=== PATIENT | female | born 1945 | race Caucasian/White ===

== ENCOUNTER 2017-02-16 16:24 | Emergency (ER) | payer OTHER ==
[~2017-02-16] VITALS: Ht 147.3 cm; Wt 87.1 kg
[~2017-02-16 16:24] MED LIST: ADVAIR 250-501 EACH INH; ENALAPRIL-HCTZ1 EACH PO; FERROUS SULFAT325 M3 PO; PROAIR HFA8.5 GM INH; PROPAFENONE HC PO; SIMVASTATIN20 M2 PO
--- NOTE | 2017-02-16 16:44 | ED GI/GU/ABDOMINAL COMPLAINT ---
History of Present Illness General Chief Complaint: General Adult Stated Complaint: PT HAS PAIN IN THE RIGTH GROIN AREA Source: patient Exam Limitations: no limitations Vital Signs & Intake/Output Vital Signs & Intake/Output Vital Signs Date Time Temp Pulse Resp B/P B/P Pulse O2 O2 Flow FiO2 Mean Ox Delivery Rate 02/16 1629 98.8 81 18 130/83 98 Room Air Allergies Coded Allergies: NO KNOWN ALLERGIES (05/11/12) Reconcile Medications Albuterol Sulfate (Proair Hfa) 8.5 GM HFA.AER.AD 2 PUF INH Q4-6 PRN PRN SOB ( Reported) Aspirin (Ecotrin*) 81 MG TABLET.DR 1 TAB PO DAILY HEART/BLOOD (Reported) Calcium (Elemental-Fr Calcarb) (Calcium) (Unknown Strength) TABLET (Unknown Dose) PO DAILY SUPPLEMENT (Reported) Cholecalciferol (Vitamin D3) (Vitamin D3) (Unknown Strength) CAPSULE (Unknown Dose) PO DAILY SUPPLEMENT (Reported) Cyanocobalamin (Vitamin B-12) (Unknown Strength) TABLET (Unknown Dose) PO DAILY SUPPLEMENT (Reported) Cyclobenzaprine HCl 10 MG TABLET 1 TAB PO TID PRN SPASM DO NOT DRIVE WITH THIS MEDICATION Enalapril Maleate 10 MG TABLET 1 TAB PO BID BP (Reported) Ferrous Sulfate 325 MG TABLET 1 TAB PO TID SUPPLEMENT (Reported) Fluticasone/Salmeterol (Advair 250-50 Diskus) 1 EACH BLST.W.DEV 1 PUF INH BID SOB (Reported) Methylprednisolone. (Medrol) 4 MG TAB.DS.PK 1 DP PO AD INFLAMMATION 6 on day 1 then reduce by one tablet daily until gone Omeprazole 20 MG CAPSULE.DR 1 CAP PO DAILY GI (Reported) Propafenone HCl 225 MG TABLET 1 TAB PO BID HEART (Reported) Simvastatin (Simvastatin*) 20 MG TABLET 1 TAB PO QPM CHOL (Reported) Tramadol HCl 50 MG TABLET 1 TAB PO BIDP PRN PAIN Triage Note: 71 YO FEMALE TO TRIAGE C/O R SIDED GROIN PAIN X2 DAYS. STATES PAIN IS GETTING WORSE. HAS BEEN USING ICE WITHOUT RELIEF. DENIES INJURY. Triage Nurses Notes Reviewed? yes ? N Is pt currently ? No Onset: Abrupt Duration: day(s): (3) Timing: multiple episodes today Quality/Severity: moderate, severe Location: right lower quadrant Modifying Factors: Worsens With: movement. HPI: 71 year old female presents to [facility] ER with right groin pain x 3 days. Denies trauma. Pain is sharp, worse with range of motion. Today she could not lift up the leg to get into the car. No fever, chills or sweats. Past History Travel History Traveled to [place] past 21 day No Medical History Any Pertinent Medical History? see below for history Neurological: NONE EENT: NONE Cardiovascular: HTN,CHOL Respiratory: asthma Gastrointestinal: GERD Hepatic: NONE Renal: chronic kidney disease Musculoskeletal: NONE Psychiatric: NONE Endocrine: NONE Blood Disorders: NONE Cancer(s): NONE TRY OUT PERSON/Reproductive: NONE Surgical History Surgical History: b/l knee repair Psychosocial History Who do you live with Patient/Self Services at Home None What is your primary language Moroccan Tobacco Use: Never used ETOH Use: denies use Family History Hx Contributory? No Review of Systems Review of Systems Constitutional: Denies: chills, fever. EENTM: Reports: no symptoms. Respiratory: Denies: cough, short of breath. Cardiovascular: Denies: chest pain. GI: Reports: no symptoms. Genitourinary: Reports: no symptoms. Musculoskeletal: Reports: joint pain. Denies: joint swelling. Skin: Reports: no symptoms. Neurological/Psychological: Reports: no symptoms. Hematologic/Endocrine: Denies: bruising, bleeding, polyuria, polydipsia. Immunologic/Allergic: Denies: splenectomy. All Other Systems: Reviewed and Negative Physical Exam Physical Exam General Appearance: well developed/nourished, alert, awake, anxious Head: atraumatic, normal appearance Eyes: Bilateral: normal appearance, PERRL, EOMI. Ears, Nose, Throat, Mouth: hearing grossly normal, moist mucous membrane Neck: normal inspection, supple, full range of motion Respiratory: normal breath sounds, chest non-tender, no respiratory distress Cardiovascular: regular rate/rhythm Peripheral Pulses: 2+ radial (R), 2+ radial (L) Gastrointestinal: normal bowel sounds, soft, non-tender Extremities: PAIN WITH RANGE OF MOTION RIGHT LEG Neurologic/Psych: no motor/sensory deficits, awake, alert, oriented x 3 Skin: intact, normal color, warm/dry Core Measures ACS in differential dx? No Severe Sepsis Present: No Septic Shock Present: No Progress Differential Diagnosis: hernia, SCATICA, MUSCLE STRAIN, FRACTURE, DISLOCATION Plan of Care: Orders Procedure Date/time Status URINALYSIS 02/16 1658 Complete Current Medications Sig/Carl Start time Last Medication Dose Stop Time Status Admin Prednisone 60 MG ONCE ONE 02/16 1930 AC 02/16 1931 Laboratory Tests 02/16/17 1848: Urine Color YEL, Urine Clarity CLEAR, Urine pH 6.0, Ur Specific [place] 1.025, Urine Protein NEG, Urine Ketones NEG, Urine Nitrite NEG, Urine Bilirubin NEG, Urine Urobilinogen 0.2, Ur Leukocyte Esterase NEG, Ur Microscopic EXAM NOT REQUIRED, Urine Hemoglobin NEG, Urine Glucose NEG Diagnostic Imaging: Viewed by Me: CT Scan. Discussed w/RAD: CT Scan. Initial ED EKG: NSR Comments: PATIENT: TAMIA PHOENIX PRESENT AGE: 71 PATIENT ACCOUNT NO: [id number] : 43 LOCATION: [facility] ORDERING PHYSICIAN: JAZMIN MONTESINOS MD SERVICE DATE: 02/16/17 EXAM TYPE: CAT - CT LUMB SPINE WO IV CONTRAST EXAMINATION: CT LUMBAR SPINE WITHOUT CONTRAST CLINICAL INFORMATION: Severe right groin pain. Recent low back injection. Assess for degenerative joint disease or disc disease. COMPARISON: None. TECHNIQUE: Helical non-contrast CT images were obtained through the lumbar spine and 0.625 and 2.5 mm axial reconstructions were reviewed along with sagittal and coronal MPRs. DLP: 935.67 mGy-cm FINDINGS: There is a 5 mm grade 1 anterolisthesis of L4 on L5, and there is a 2 mm grade 1 anterolisthesis of L5 on S1. There are severe vacuum disc changes at these levels with narrowing of intervertebral disc height. Vertebral body heights are maintained and there are no compression fractures. Overall, bone mineralization appears diffusely decreased. There are atheromatous calcifications of the vascular structures. There are degenerative changes of the sacroiliac joints bilaterally. The pelvic structures are unremarkable. There is mild increased density in the subcutaneous fat in the left lower back which is nonspecific, but may be related to the recent back injection. No focal fluid collections are demonstrated. SPINAL LEVELS: T12-L1: The disc configuration is normal. The central canal and neural foramina are widely patent. The facet joints are normal. L1-L2: The disc configuration is normal. The central canal and neural foramina are widely patent. The facet joints are normal. L2-L3: There is mild bilateral facet arthropathy. Disc contour is normal. There is no central stenosis or foraminal narrowing. L3-L4: There is moderate bilateral facet arthropathy and ligamenta flava hypertrophy. There is a posterior disc protrusion extending into the neural foramina bilaterally without definite nerve root impingement. There is mild central stenosis. L4-L5: There is severe bilateral facet arthropathy. There is unroofing of the disc as a result of the anterolisthesis and there are bilateral foraminal disc protrusions with impingement on the exiting L4 nerve roots bilaterally. There is moderate to severe central stenosis. L5-S1: There is mild to moderate bilateral facet arthropathy. There is unroofing of the disc as a result of the anterolisthesis. There are bilateral foraminal disc protrusions, which appear more prominent on the left with impingement on the exiting left greater than right L5 nerve roots. There is no central stenosis. IMPRESSION: 1. There are no acute fractures. 2. 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 3. There is moderate to severe central stenosis at L4-L5. There is mild central stenosis at L3-L4. DICTATED BY: JUNIOR AYALA MD DATE/TIME DICTATED:02/16/171742 CORPORATE COMPLIANCE OFFICER:FERNANDA DATE/TIME TRANSCRIBED:02/16/171742 CONFIDENTIAL, DO NOT COPY WITHOUT APPROPRIATE AUTHORIZATION. <Electronically signed in Other Vendor System> SIGNED BY: JUNIOR AYALA MD 02/16/17 1802 PATIENT: TAMIA PHOENIX PRESENT AGE: 71 PATIENT ACCOUNT NO: [id number] : 43 LOCATION: [facility] ORDERING PHYSICIAN: JAZMIN MONTESINOS MD SERVICE DATE: 02/16/17 EXAM TYPE: CAT - CT PELVIS WO IV CONTRAST EXAMINATION: CT PELVIS WITHOUT CONTRAST CLINICAL INFORMATION: Severe right groin/pelvic pain. Evaluate for pelvic fracture. COMPARISON: None TECHNIQUE: Helical scanning was performed with submillimeter collimation through the pelvis. Sagittal and coronal multiplanar 2-D reconstructions were obtained. DLP: 893.61 mGy-cm FINDINGS: PELVIS: There is no pelvic mass. There are small fat-containing bilateral inguinal hernias. OSSEOUS STRUCTURES: There are mild degenerative changes of both sacroiliac joints with patchy subchondral sclerosis, mild cortical irregularity, and a vacuum phenomenon in each joint. There are moderate degenerative changes of the symphysis pubis. There is no acute fracture or malalignment. There is mild osteoarthritis in both hips. There is nonspecific subchondral sclerosis and mild cystic change in both femoral heads. IMPRESSION: 1. No acute fracture. 2. 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 Moderate degenerative changes in the symphysis pubis. 3. Small fat-containing bilateral inguinal hernias. DICTATED BY: FELICITAS VERNON MD DATE/TIME DICTATED:02/16/171740 CORPORATE COMPLIANCE OFFICER:FERNANDA DATE/TIME TRANSCRIBED:02/16/171740 CONFIDENTIAL, DO NOT COPY WITHOUT APPROPRIATE AUTHORIZATION. <Electronically signed in Other Vendor System> SIGNED BY: FELICITAS VERNON MD 1803 Departure Departure Time of Disposition: 1922 Disposition: HOME OR SELF CARE Condition: Stable Clinical Impression Primary Impression: Right groin pain Referrals: LONA GARNICA MD (PCP/Family) Additional Instructions: TAKE THE PREDNISONE, FLEXERIL AND TRAMADOL DIRECTED. FOLLOW UP WITH DR GARNICA ON SUNDAY. RETURN TO THE ER FOR ANY WEAKNESS, NUMBNESS, DIFFICULTY WITH BOWEL OR BLADDER. Departure Forms: Customer Survey General Discharge Information Prescriptions: Current Visit Scripts Methylprednisolone. (Medrol) 1 DP PO AD #1 DP 6 on day 1 then reduce by one tablet daily until gone Cyclobenzaprine HCl 1 TAB PO TID PRN SPASM #[address] WITH THIS MEDICATION Tramadol HCl 1 TAB PO BIDP PRN PAIN #14 TAB
[2017-02-16] MEDS ORDERED: ENALAPRIL MALEA10 M1 PO (17:57)
[2017-02-16] MEDS ORDERED: ASPIRIN EC81 M1 PO (17:58)
[2017-02-16] MEDS ORDERED: VITAMIN B-121000 MC3 PO (17:59)
[2017-02-16] MEDS ORDERED: CALCIUM600 M3 PO (17:59)
[2017-02-16] MEDS ORDERED: OMEPRAZOLE20 M2 PO (17:59)
[2017-02-16] MEDS ORDERED: VITAMIN D31000 UNI1 PO (17:59)
--- NOTE | 2017-02-16 18:02 | CT SCAN REPORT ---
EXAMINATION: CT LUMBAR SPINE WITHOUT CONTRAST CLINICAL INFORMATION: Severe right groin pain. Recent low back injection. Assess for degenerative joint disease or disc disease. COMPARISON: None. TECHNIQUE: Helical non-contrast CT images were obtained through the lumbar spine and 0.625 and 2.5 mm axial reconstructions were reviewed along with sagittal and coronal MPRs. DLP: 935.67 mGy-cm FINDINGS: There is a 5 mm grade 1 anterolisthesis of L4 on L5, and there is a 2 mm grade 1 anterolisthesis of L5 on S1. There are severe vacuum disc changes at these levels with narrowing of intervertebral disc height. Vertebral body heights are maintained and there are no compression fractures. Overall, bone mineralization appears diffusely decreased. There are atheromatous calcifications of the vascular structures. There are degenerative changes of the sacroiliac joints bilaterally. The pelvic structures are unremarkable. There is mild increased density in the subcutaneous fat in the left lower back which is nonspecific, but may be related to the recent back injection. No focal fluid collections are demonstrated. SPINAL LEVELS: T12-L1: The disc configuration is normal. The central canal and neural foramina are widely patent. The facet joints are normal. L1-L2: The disc configuration is normal. The central canal and neural foramina are widely patent. The facet joints are normal. L2-L3: There is mild bilateral facet arthropathy. Disc contour is normal. There is no central stenosis or foraminal narrowing. L3-L4: There is moderate bilateral facet arthropathy and ligamenta flava hypertrophy. There is a posterior disc protrusion extending into the neural foramina bilaterally without definite nerve root impingement. There is mild central stenosis. L4-L5: There is severe bilateral facet arthropathy. There is unroofing of the disc as a result of the anterolisthesis and there are bilateral foraminal disc protrusions with impingement on the exiting L4 nerve roots bilaterally. There is moderate to severe central stenosis. L5-S1: There is mild to moderate bilateral facet arthropathy. There is unroofing of the disc as a result of the anterolisthesis. There are bilateral foraminal disc protrusions, which appear more prominent on the left with impingement on the exiting left greater than right L5 nerve roots. There is no central stenosis. IMPRESSION: 1. There are no acute fractures. 2. 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 3. There is moderate to severe central stenosis at L4-L5. There is mild central stenosis at L3-L4.
--- NOTE | 2017-02-16 18:04 | CT SCAN REPORT ---
EXAMINATION: CT PELVIS WITHOUT CONTRAST CLINICAL INFORMATION: Severe right groin/pelvic pain. Evaluate for pelvic fracture. COMPARISON: None TECHNIQUE: Helical scanning was performed with submillimeter collimation through the pelvis. Sagittal and coronal multiplanar 2-D reconstructions were obtained. DLP: 893.61 mGy-cm FINDINGS: PELVIS: There is no pelvic mass. There are small fat-containing bilateral inguinal hernias. OSSEOUS STRUCTURES: There are mild degenerative changes of both sacroiliac joints with patchy subchondral sclerosis, mild cortical irregularity, and a vacuum phenomenon in each joint. There are moderate degenerative changes of the symphysis pubis. There is no acute fracture or malalignment. There is mild osteoarthritis in both hips. There is nonspecific subchondral sclerosis and mild cystic change in both femoral heads. IMPRESSION: 1. No acute fracture. 2. 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 Moderate degenerative changes in the symphysis pubis. 3. Small fat-containing bilateral inguinal hernias.
[2017-02-16] MEDS ORDERED: MEDROL4 M2 PO (19:26)
[2017-02-16] MEDS ORDERED: TRAMADOL HCL50 M1 PO (19:26)
[2017-02-16] MEDS ORDERED: CYCLOBENZAPRINE10 M1 PO (19:26)
[2017-02-16 19:40] VITALS: BP 149/69
== END 2017-02-16 19:41 ==
LOC: ERH 16:24
DX: R10.31 Right lower quadrant pain (principal)
CPT/HCPCS: 81003

== ENCOUNTER 2017-12-03 12:45 | Emergency (ER) | payer OTHER ==
[~2017-12-03] VITALS: Ht 152.4 cm; Wt 83.9 kg
[~2017-12-03 12:45] MED LIST changes: +ASPIRIN EC81 M1 PO; +CALCIUM600 M3 PO; +CYCLOBENZAPRINE10 M1 PO; +ENALAPRIL MALEA10 M1 PO; +MEDROL4 M2 PO; +OMEPRAZOLE20 M2 PO; +TRAMADOL HCL50 M1 PO; +VITAMIN B-121000 MC3 PO; +VITAMIN D31000 UNI1 PO
[2017-12-03 13:51] LABS: ABSOLUTE BASOPHIL COUNT 0.1 /CUMM (0.0-0.2); ABSOLUTE EOSINOPHIL COUNT 0.2 /CUMM (0.0-0.7); ABSOLUTE GRANULOCYTE CT 3.5 /CUMM (1.4-6.5); ABSOLUTE LYMPH COUNT 1.1 /CUMM (1.2-3.4); ABSOLUTE MONOCYTE COUNT 0.3 /CUMM (0.10-0.60); EOSINOPHIL % 4.3 % (0-5); GRANULOCYTE % 66.4 % (42.2-75.2); MEAN CORPUSCULAR HGB 32.1 PG (27.0-31.0); MEAN CORPUSCULAR HGB CONC 33.5 G/DL (33.0-37.0); MEAN CORPUSCULAR VOLUME 95.7 FL (81.0-99.0); MEAN PLATELET VOLUME 7.4 FL (7.4-10.4); PLATELET COUNT 358 /CUMM (130-400); RBC DISTRIBUTION WIDTH 14.1 % (11.5-14.5); RED BLOOD CELL CT 3.66 /CUMM (4.20-5.40); WHITE BLOOD CELL COUNT 5.2 /CUMM (4.8-10.8)
--- NOTE | 2017-12-03 14:52 | CT SCAN REPORT ---
EXAMINATION: CT HEAD WITHOUT CONTRAST CLINICAL INFORMATION: Dizziness, weakness. COMPARISON: None TECHNIQUE: Contiguous axial imaging was performed from the skull base to vertex without intravenous administration of contrast. DLP: 616 mGy-cm FINDINGS: There is no evidence of acute intracranial hemorrhage or territorial infarction. No abnormal mass effect or midline shift is seen. Muller to white matter differentiation is well preserved. No extra-axial fluid collections are identified. The ventricles are normal in size. There is no abnormal attenuation within the brain parenchyma. The osseous structures and soft tissues are normal. The mastoid air cells, middle ear cavities, and visualized portions of the paranasal sinuses are well aerated. There is a partially visualized anterior nasal septal defect. IMPRESSION: No acute intracranial pathology.
--- NOTE | 2017-12-03 15:41 | ED GENERAL ADULT ---
History of Present Illness General Chief Complaint: General Adult Stated Complaint: DIZZY,CHILLS,ABDOMINAL PAIN,ZAVALA Source: patient Exam Limitations: no limitations Vital Signs & Intake/Output Vital Signs & Intake/Output Vital Signs Date Time Temp Pulse Resp B/P B/P Pulse O2 O2 Flow FiO2 Mean Ox Delivery Rate 12/03 1754 76 136/84 12/03 1306 98.1 73 16 142/85 96 Room Air Allergies Coded Allergies: NO KNOWN ALLERGIES (05/11/12) Core Measure Meds Pre-Hospital aspirin Triage Note: 72 Y/O FEMALE C/O WAKING TODAY WITH DIZZINESS, R SIDED POSTERIOUR NECK PAIN AND INTERMITTENT LOWER ABDOMINAL CRAMPING. STATES SHE FELT "FINE" WHEN SHE WENT TO BED, AND ALSO WHEN SHE WOKE IN THE MIDDLE OF THE NIGHT TO USE RESTROOM. EKG COMPLETED. Triage Nurses Notes Reviewed? 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 The patient states that this morning when she attempted to get out of bed, she felt dizzy and that she might pass out. She laid down and states that started to have hot flashes and cold sweats. She also notes that she had a headache in her temples that ran down her neck on the right side. She notes that she felt this same headache before a couple months ago. She states that she also has some abdominal pain that is concentrated inthe lower right quadrant, worse on palpation. She mentioned this pain to her primary care DIRECTOR OF CUSTOMER SERVICE last week. She did some tests but found no abnormalities. Patient does have history of AVM as stated. She does admit to some constipation recently and black stools on iron tablets. She noticed some blood about a month ago but her doctor told her it was most likely due to hemorrhoids. The last time she had this abdominal pain was last . The patient denies vomiting but admits to being nauseous due to the dizziness. She states that she had the same dizziness a few years ago and back last year in may. She went to the ENT but states that they found nothing. They did not do any eply manuever. She denies fever or chills, no falls, no LOC, no head strike, no injury recently, no vision change, no hearing change, no cough, no SOB, no focal neuro deficits, no urinary symptoms, no confusion. The patient lives alone but notes that she has a good support system with family living nearby. (Lesa DAWN,Kylie) Reconcile Medications Albuterol Sulfate (Proair Hfa) 8.5 GM HFA.AER.AD 2 PUF INH Q4-6 PRN PRN SOB ( Reported) Aspirin (Ecotrin*) 81 MG TABLET.DR 1 TAB PO DAILY HEART/BLOOD (Reported) Calcium (Elemental-Fr Calcarb) (Calcium) (Unknown Strength) TABLET (Unknown Dose) PO DAILY SUPPLEMENT (Reported) Cholecalciferol (Vitamin D3) (Vitamin D3) (Unknown Strength) CAPSULE (Unknown Dose) PO DAILY SUPPLEMENT (Reported) Cyanocobalamin (Vitamin B-12) (Unknown Strength) TABLET (Unknown Dose) PO DAILY SUPPLEMENT (Reported) Cyclobenzaprine HCl 10 MG TABLET 1 TAB PO TID PRN SPASM DO NOT DRIVE WITH THIS MEDICATION Enalapril Maleate 10 MG TABLET 1 TAB PO BID BP (Reported) Ferrous Sulfate 325 MG TABLET 1 TAB PO TID SUPPLEMENT (Reported) Fluticasone/Salmeterol (Advair 250-50 Diskus) 1 EACH BLST.W.DEV 1 PUF INH BID SOB (Reported) Meclizine HCl 12.5 MG TABLET 1-2 TAB PO TID PRN dizziness Methylprednisolone. (Medrol) 4 MG TAB.DS.PK 1 DP PO AD INFLAMMATION 6 on day 1 then reduce by one tablet daily until gone Omeprazole 20 MG CAPSULE.DR 1 CAP PO DAILY GI (Reported) Propafenone HCl 225 MG TABLET 1 TAB PO BID HEART (Reported) Scopolamine 1 MG/3 DAY PATCH.TD.3 1 PATCH PAT EVERY 3 DAYS PRN dizziness apply one patch every 3 days Simvastatin (Simvastatin*) 20 MG TABLET 1 TAB PO QPM CHOL (Reported) Tramadol HCl 50 MG TABLET 1 TAB PO BIDP PRN PAIN (Greyson DAWN,Renzo) Past History Travel History Traveled to [place] past 21 day No Medical History Neurological: NONE EENT: NONE Cardiovascular: HTN,CHOL Respiratory: asthma Gastrointestinal: GERD Hepatic: NONE Renal: chronic kidney disease Musculoskeletal: NONE Psychiatric: NONE Endocrine: NONE Blood Disorders: NONE Cancer(s): NONE 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 Yes (Kylie Mcfadden MD) Medical History Any Pertinent Medical History? see below for history (Renzo Rubi MD) Review of Systems Review of Systems Constitutional: Reports: no symptoms. Respiratory: Reports: no symptoms. Cardiovascular: Reports: peripheral edema. GI: Reports: constipation. Genitourinary: Reports: no symptoms. Musculoskeletal: Reports: no symptoms. Skin: Reports: no symptoms. Neurological/Psychological: Reports: see HPI, headache. Hematologic/Endocrine: Reports: no symptoms. (Kylie Mcfadden MD) Review of Systems EENTM: Reports: no symptoms. Immunologic/Allergic: Reports: no symptoms. All Other Systems: Reviewed and Negative (Renzo Rubi MD) Physical Exam Physical Exam General Appearance: well developed/nourished, no apparent distress, alert, awake Head: atraumatic, normal appearance Eyes: Bilateral: normal appearance, PERRL, EOMI. Ears, Nose, Throat: normal pharynx, normal ENT inspection, hearing grossly normal Neck: normal inspection, supple, full range of motion Respiratory: normal breath sounds, chest non-tender Cardiovascular: regular rate/rhythm, edema, systolic murmur (right upper sternal border3/6) Peripheral Pulses: 2+ radial (R), 2+ radial (L) Gastrointestinal: normal bowel sounds, soft, tenderness Extremities: normal inspection, normal capillary refill, normal range of motion Neurologic/Psych: no motor/sensory deficits, awake, alert, oriented x 3, normal mood/affect, abnormal gait, au pair II-XII nml as tested Reflexes: 2+: knee (R), knee (L). Skin: intact Core Measures ACS in differential dx? Yes CVA/TIA Diagnosis: No Sepsis Present: No Sepsis Focused Exam Completed? Yes (Kylie Mcfadden MD) Physical Exam Back: normal inspection, normal range of motion Lymphatic: no anterior cervical cristian (Renzo Rubi MD) Progress Differential Diagnoses I considered the following diagnoses in my evaluation of the patient: BPPV, anemia, stroke/TIA, inner ear infection, labarynthitis, vestibular neuronitits, cerebellar mass, severe aortic stenosis. Plan of Care: Orders Procedure Date/time Status TROPONIN LEVEL 12/03 1332 Complete MAGNESIUM 12/03 1332 Complete COMPREHENSIVE METABOLIC PANEL 12/03 1332 Complete CBC WITHOUT DIFFERENTIAL 12/03 1332 Complete EKG 12/03 1246 Active Laboratory Tests 12/03/17 1342: Anion Gap 12, Estimated GFR 40 L, BUN/Creatinine Ratio 17.7, Glucose 100 H, Calcium 10.1, Magnesium 1.8, Total Bilirubin 0.6, AST 17, ALT 15, Alkaline Phosphatase 67, Troponin I < 0.01, Total Protein 6.5, Albumin 4.0, Globulin 2.5, Albumin/Globulin Ratio 1.6, CBC w Diff NO MAN DIFF REQ, RBC 3.66 L, MCV 95.7, MCH 32.1 H, MCHC 33.5, RDW 14.1, MPV 7.4, Gran % 66.4, Lymphocytes % 21.6, Monocytes % 6.7, Eosinophils % 4.3, Basophils % 1.0, Absolute Granulocytes 3.5, Absolute Lymphocytes 1.1 L, Absolute Monocytes 0.3, Absolute Eosinophils 0.2, Absolute Basophils 0.1 Patient is a 72 year old female with a PMH significant for 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 She also notes abdominal pain that started last week associated with black stool although she is on high dose iron for her anemia secondary to AVM and constipation. Patient saw an ENT for her dizziness in the past with no workup, no eply manuever done. Vitals in the ED are stable. EKG shows sinus rhythm at a rate of 69, no changes from before. Patient is found on physical exam to have bilateral lower edema, a 3/6 systolic right upper sternal border murmur and abdnormal heel to toe gait. Rest of neuro exam is normal. Labs done show a mild anemia that is baseline for her, elevated Cr that is also baseline, and normal liver function tests. Negative troponin. Slightly elevated K at 5.2. No evidence infection. 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 Muller for her kidneys. 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 Aortic stenosis may be causing her issues but she denies lightheadedness and states that it is more a dizziness as if the world is spinning. CT ruled out stroke and mass. Labyrinthitis and vestibular neuronitis are self limited and will resolved within a week. If patient has BPPV she may require treatment with ENT. We will prescribe meclizine 12.5 mg 1-2 tabs tid and scopalamine patch q3days. We will refer to Dr. Amin ENT. Initial ED EKG: normal axis, none, normal intervals, NSR Prior EKG: unchanged (Kylie Mcfadden MD) Differential Diagnoses I considered the following diagnoses in my evaluation of the patient: Rhythm Strip: normal sinus rhythm (Renzo Rubi MD) Departure Departure Disposition: HOME OR SELF CARE Condition: Stable Clinical Impression Primary Impression: Dizziness, nonspecific Referrals: Jaky Moura APRN (PCP/Family) Departure Forms: Customer Survey General Discharge Information Prescriptions: Current Visit Scripts Scopolamine 1 PATCH PAT EVERY 3 DAYS PRN dizziness #8 PATCH apply one patch every 3 days Meclizine HCl 1-2 TAB PO TID PRN dizziness #60 TAB (Kylie Mcfadden MD) Resident Co-Sign Statement Statement: ED Attending supervision documentation- x I saw and evaluated the patient. I have also reviewed all the pertinent lab results and diagnostic results. I agree with the findings and the plan of care as documented in the Resident's documentation. [] I have reviewed the ED Record and agree with the Resident's documentation. [] Additions or exceptions (if any) to the Resident's note and plan are summarized below: [] (Renzo Rubi MD) Critical Care Note Critical Care Note Critical Care Time: 30-74 min (Kylie Mcfadden MD)
[2017-12-03] MEDS ORDERED: SCOPOLAMINE1 EAC1 PAT (17:06)
[2017-12-03] MEDS ORDERED: MECLIZINE HCL12.5 M1 PO (17:06)
[2017-12-03 17:54] VITALS: BP 136/84
== END 2017-12-03 17:55 ==
LOC: ERH 12:45
PROVIDERS: Emergency Medicine
DX: R42 Dizziness and giddiness (principal)
CPT/HCPCS: 93005; 93010

== ENCOUNTER 2018-01-03 20:59 | Emergency (ER) | payer OTHER ==
[~2018-01-03] VITALS: Ht 152.4 cm; Wt 82.1 kg
[~2018-01-03 20:59] MED LIST changes: +MECLIZINE HCL12.5 M1 PO; +SCOPOLAMINE1 EAC1 PAT
[2018-01-03 21:03] VITALS: BP 133/80
--- NOTE | 2018-01-03 21:08 | ED UPPER/LOWER EXTREMITY COMPL ---
History of Present Illness General Chief Complaint: Upper Extremity Injury Stated Complaint: "RT ARM PAIN" Source: patient Exam Limitations: no limitations Vital Signs & Intake/Output Vital Signs & Intake/Output Vital Signs Date Time Temp Pulse Resp B/P B/P Pulse O2 O2 Flow FiO2 Mean Ox Delivery Rate 01/03 2103 97.1 102 18 133/80 97 Room Air Room Air Allergies Coded Allergies: NO KNOWN ALLERGIES (05/11/12) Reconcile Medications Albuterol Sulfate (Proair Hfa) 8.5 GM HFA.AER.AD 2 PUF INH Q4-6 PRN PRN SOB ( Reported) Aspirin (Ecotrin*) 81 MG TABLET.DR 1 TAB PO DAILY HEART/BLOOD (Reported) Calcium (Elemental-Fr Calcarb) (Calcium) (Unknown Strength) TABLET (Unknown Dose) PO DAILY SUPPLEMENT (Reported) Cholecalciferol (Vitamin D3) (Vitamin D3) (Unknown Strength) CAPSULE (Unknown Dose) PO DAILY SUPPLEMENT (Reported) Cyanocobalamin (Vitamin B-12) (Unknown Strength) TABLET (Unknown Dose) PO DAILY SUPPLEMENT (Reported) Cyclobenzaprine HCl 10 MG TABLET 1 TAB PO TID PRN SPASM DO NOT DRIVE WITH THIS MEDICATION Enalapril Maleate 10 MG TABLET 1 TAB PO BID BP (Reported) Ferrous Sulfate 325 MG TABLET 1 TAB PO TID SUPPLEMENT (Reported) Fluticasone/Salmeterol (Advair 250-50 Diskus) 1 EACH BLST.W.DEV 1 PUF INH BID SOB (Reported) Meclizine HCl 12.5 MG TABLET 1-2 TAB PO TID PRN dizziness Methylprednisolone. (Medrol) 4 MG TAB.DS.PK 1 DP PO AD INFLAMMATION 6 on day 1 then reduce by one tablet daily until gone Omeprazole 20 MG CAPSULE.DR 1 CAP PO DAILY GI (Reported) Propafenone HCl 225 MG TABLET 1 TAB PO BID HEART (Reported) Scopolamine 1 MG/3 DAY PATCH.TD.3 1 PATCH PAT EVERY 3 DAYS PRN dizziness apply one patch every 3 days Simvastatin (Simvastatin*) 20 MG TABLET 1 TAB PO QPM CHOL (Reported) Tramadol HCl 50 MG TABLET 1 TAB PO BIDP PRN PAIN Triage Note: TRIAGE: 72 Y/O FEMALE PRESENTS C/O 7-8 RIGHT BICEP PAIN S/P MANEUVERING CAR PARTS AT 3PM THIS AFTERNOON. REPORTS PAIN WORSE WITH MOVEMENT. UTILIZED ICE AT HOME. TOOK (2) EXTRA STRENGTH TYLENOL AT HOME PRIOR TO ARRIVAL. Triage Nurses Notes Reviewed? yes Onset: Abrupt Duration: hour(s): Timing: single episode today Severity: mild Pain/Injury Location: Right: Other (right bicep). Method of Injury: see below Modifying Factors: Worsens With: movement. Associated Symptoms: right biceps pain. HPI: 72 yo woman presents with right biceps pain since this afternoon. "I had to move the seat in my car and felt pain in my right arm... like a sudden pop." She is otherwise well, without chest pain, dyspnea, wheezing, chills. She is otherwise well. Past History Travel History Traveled to [facility] past 21 day No Medical History Any Pertinent Medical History? 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 No Review of Systems Review of Systems Constitutional: Reports: no symptoms. EENTM: Reports: no symptoms. Respiratory: Reports: no symptoms. Cardiovascular: Reports: no symptoms. Gastrointestinal/Abdominal: Reports: no symptoms. Genitourinary: Reports: no symptoms. Musculoskeletal: Reports: no symptoms. Skin: Reports: no symptoms. Neurological/Psychological: Reports: no symptoms. Hematologic/Endocrine: Reports: no symptoms. Immunological: Reports: no symptoms. All Other Systems: Reviewed and Negative Physical Exam Physical Exam General Appearance: well developed/nourished, mild distress Head: atraumatic Eyes: Bilateral: normal appearance. Ears, Nose, Throat: normal pharynx, normal ENT inspection Neck: normal inspection, supple, full range of motion Cardiovascular/Respiratory: normal breath sounds Elbow Right: focal discomfort to palpation at the right bicep. no bony tenderness. pt with pain elicited with flexion of bicep. normal ROM in shoulder and elbow. 2+ distal pulses, light touch intact no deformity. Progress Differential Diagnosis: muscle strain vs other. Plan of Care: discussed at length... benign muscle strain... pt safe for discharge... close follow up advised. Departure Departure Disposition: HOME OR SELF CARE Condition: Stable Clinical Impression Primary Impression: Muscle strain Referrals: Jaky Moura APRN (PCP/Family) Departure Forms: Customer Survey General Discharge Information
== END 2018-01-03 21:21 ==
LOC: ERH 20:59
DX: S46.211A Strain of muscle, fascia and tendon of other parts of biceps, right arm, initial encounter (principal); X58.XXXA Exposure to other specified factors, initial encounter; Y93.89 Activity, other specified; Y92.9 Unspecified place or not applicable
CPT/HCPCS: 99282